=== PATIENT | female | born 1960 | race American Indian/Alaskan Native ===

== ENCOUNTER 2016-08-22 10:22 | Outpatient (CLI) | payer OTHER ==
--- NOTE | 2016-08-22 13:35 | Mammography Report ---
BILATERAL DIGITAL SCREENING MAMMOGRAM with CAD: 08/22/16 10:22:00 CLINICAL: Routine screening. COMPARISON:None available. FINDINGS: The breasts are almost entirely fatty. No mass, architectural distortion or suspicious calcifications. IMPRESSION: No mammographic evidence of malignancy. BI-RADS CATEGORY: 1 - - Negative RECOMMENDATION: Routine mammographic screening in one year. COMMENT: Patient follow-up letters are generated by our [employer] application.
== END 2016-08-22 10:23 | disposition home or self-care (01) ==
LOC: SPVWC 10:22
PROVIDERS: ATTEND Family Medicine
DX: Z12.31 Encounter for screening mammogram for malignant neoplasm of breast (principal)
CPT/HCPCS: 77067; G0202

== ENCOUNTER 2017-03-15 09:58 | Outpatient (CLI) | payer OTHER ==
--- NOTE | 2017-03-15 14:01 | Ultrasound Report ---
ULTRASOUND PELVIC COMPLETE ULTRASOUND TRANSVAGINAL HISTORY: Followup of cervix, post coital and contact of bleeding. COMPARISON: None. TECHNIQUE: Transabdominal and transvaginal ultrasound with color doppler interrogation. FINDINGS: Uterus: The uterus is anteverted. The uterus measures 9.9 x 4.6 x 5.4 cm. There is a heterogeneous area near the uterine fundus measuring 2.6 x 2.2 cm. The etiology of this is unclear. This does not have the typical appearance of a fibroid. This is only appreciated on the transvaginal images. Consider further evaluation with pelvic MRI with contrast if needed. Endometrium: 1.3 cm. Right ovary: 1.7 x 1.2 x 2.4 cm. No abnormality. Left ovary: 2.3 x 1.6 x 2.4 cm. No abnormality. No pelvic fluid or mass is identified. Normal color doppler interrogation. No cervical polyp is identified on ultrasound. A 1.1 cm nabothian cyst is identified in the lateral cervix. IMPRESSION: Heterogeneous area in the uterine fundus of uncertain etiology. This does not have the typical appearance of a fibroid. This may be associated with the distal portions of the endometrium. Consider further evaluation with pelvic MRI with contrast. Nabothian cyst in the cervix. No cervical polyp identified.
== END 2017-03-15 09:59 | disposition home or self-care (01) ==
LOC: US 09:58
PROVIDERS: ATTEND Family Medicine
DX: N88.8 Other specified noninflammatory disorders of cervix uteri (principal); N93.0 Postcoital and contact bleeding
CPT/HCPCS: 76830; 76856

== ENCOUNTER 2017-11-28 11:15 | Outpatient (CLI) | payer OTHER ==
--- NOTE | 2017-11-29 11:43 | Mammography Report ---
BILATERAL DIGITAL SCREENING MAMMOGRAM with CAD: 11/28/17 11:15:00 CLINICAL: Routine screening. COMPARISON:08/22/16 FINDINGS: The breasts are almost entirely fatty. No mass, architectural distortion or suspicious calcifications. IMPRESSION: No mammographic evidence of malignancy. BI-RADS CATEGORY: 1 - - Negative RECOMMENDATION: Routine mammographic screening in one year. COMMENT: Patient follow-up letters are generated by our [employer] application.
== END 2017-11-28 11:16 | disposition home or self-care (01) ==
LOC: SPVWC 11:15
PROVIDERS: ATTEND Family Medicine
DX: Z12.31 Encounter for screening mammogram for malignant neoplasm of breast (principal)
CPT/HCPCS: 77067

== ENCOUNTER 2018-10-06 06:42 | Day surgery (SDC) | payer OTHER ==
--- NOTE | 2018-10-06 07:42 | Anesthesia Day of Surgery ---
Anesthesia Day of Surgery - Day of Surgery Patient Examined: Yes Patient H&P Reviewed: Yes Patient is NPO: Yes
--- NOTE | 2018-10-06 07:47 | Anesthesia Consultation ---
Anesthesia Consult and Med Hx Date of service: 10/06/18 - Airway Anesthetic Teeth Evaluation: Good, Partials ROM Head & Neck: Adequate Mental/Hyoid Distance: Adequate Mallampati Class: Class II Intubation Access Assessment: Good - Pre-Operative Health Status ASA Pre-Surgery Classification: ASA3 Proposed Anesthetic Plan: General - Pulmonary Hx Smoking: No (Can climb two flights of stairs) Hx Sleep Apnea: No (ELVIA PRE SCREEN HIGH RISK) - Cardiovascular System Hx Hypertension: Yes (2005) - Endocrine Hx Non-Insulin Dependent Diabetes: Yes (No RX) - Other Systems Hx Cancer: No
[2018-10-06] MEDS ORDERED: DECADRON ONE (08:56)
[2018-10-06] MEDS ORDERED: ZOFRAN ONE (08:56)
[2018-10-06] MEDS ORDERED: XYLOCAINE MPF 2% ONE (08:56)
[2018-10-06] MEDS ORDERED: SUBLIMAZE ONE (08:57)
[2018-10-06] MEDS ORDERED: DIPRIVAN 10 MG/ML IV ONE (08:57)
[2018-10-06] MEDS ORDERED: LACTATED RINGERS 1,000 ML IV SCH (09:00)
[2018-10-06] MEDS ORDERED: NACL 0.9% IR ONE ×2 (09:44)
[2018-10-06 11:05] VITALS: BP 137/37
--- NOTE | 2018-10-06 13:22 | Operative Report ---
Operative Report Operative Report: Preoperative diagnosis: 1. Abnormal uterine bleeding. 2. Thickened endometrium. 3. Leiomyomae. 4. Endometrial polyps. Postoperative diagnosis: same as preoperative diagnosis. Procedure: 1. Hysteroscopy. 2. D&C 3. Endometrial polypectomy. Surgeon: Dr. Lehman Linter Tender: none Anesthesia: IV sedation with MAC. EBL: minimal IVF: RL 1 liter Complications: none Procedure details: The risks, benefits, and alternatives of the procedure were discussed in detail with the patient which included but not limited to infection, hemorrhage requiring a, and uterine perforation. The patient expressed understanding, her questions answered, and she gave informed consent. The patient was taken to the operating room with an IVF infusing Ringer's lactate. In the operating room, she was placed in the dorsal supine position and given IV sedation with MAC. Then, she was placed on the stirrups in a dorsal lithotomy position. The perineum vagina and cervix were washed and she was prepared and draped in the usual sterile fashion. Examination under anesthesia revealed normal external genitalia and vagina. The cervix was closed, long, posterior with mild bleeding at the os. The uterus was enlarged to 14-16 week size with irregular countour, anteverted, mobile, the adnexae were nonpalpable. A weighted speculum was placed placed on the posterior vaginal wall. The anterior lip of the cervix was grasped with a single-tooth tenaculum. Endocervical curettage was done. The cervical os was dilated and the hysteroscope was introduced into the uterine cavity. It revealed thickened endometrial lining with small polyps. The ostia were visualized. The hysteroscope was removed from the uterine cavity. A gentle curettage was performed and multiple small polyps were removed until a gritty texture was noticed. The specimen which consisted of ECC, EMC and endometrial polyps was sent to pathology. The instruments were removed from the cervix and vagina. The count of laps, needles, sponges, and instrument were correct 2. The patient tolerated the procedure well. She was awakened from the anesthesia and taken to the recovery room in a stable condition.
== END 2018-10-06 06:43 | disposition home or self-care (01) ==
LOC: OR 06:42
PROVIDERS: ATTEND Obstetrics & Gynecology
DX: N84.0 Polyp of corpus uteri (principal); N72 Inflammatory disease of cervix uteri; N93.8 Other specified abnormal uterine and vaginal bleeding; I10 Essential (primary) hypertension; E11.9 Type 2 diabetes mellitus without complications; Z98.890 Other specified postprocedural states; Z79.899 Other long term (current) drug therapy
CPT/HCPCS: 36415; 58558; 82962; 84132; 88305; 88341; 88342; A4217; J1100; J2405; J2704; J3010; J7120

== ENCOUNTER 2018-12-10 10:25 | Outpatient (CLI) | payer OTHER ==
--- NOTE | 2018-12-10 13:07 | Mammography Report ---
BILATERAL DIGITAL SCREENING MAMMOGRAM WITH CAD INDICATION: Routine screening mammography. TECHNIQUE: Digital bilateral 2D mammography was obtained in the craniocaudal and mediolateral obliq ue projections. This examination was interpreted with the benefit of Computer-Aided Detection analysi s. COMPARISON: 11/28/2017 FINDINGS: Breast Density: The breasts are almost entirely fatty. No mass, architectural distortion or suspicious calcifications. IMPRESSION:No mammographic evidence of malignancy. BI-RADS Category 1: Negative. No mammographic evidence of malignancy. Recommend routine screening m ammography in one year. A "normal" or negative report should not discourage follow up or biopsy of a clinically significant f inding. A written summary of these findings will be mailed to the patient. The patient will be entered into a mammography reporting system which will generate a reminder letter for the patient's next appointmen t at the appropriate interval. The [employer] recommends yearly mammograms starting at age 40 and continuing as [place] as a woman is in good health. Breast MRI is recommended for women with an approximate 20-25% or greater lifetime risk of breast cancer, including women with a strong family history of breast or ova ladarius cancer or who have been treated for Hodgkin's disease. Signer Name: Jose Juan Jcaobs MD Signed: 12/10/2018 1:03 PM Workstation Name: [id number]
== END 2018-12-10 10:26 | disposition home or self-care (01) ==
LOC: SPVWC 10:25
PROVIDERS: ATTEND Family Medicine
DX: Z12.31 Encounter for screening mammogram for malignant neoplasm of breast (principal); I10 Essential (primary) hypertension; E11.9 Type 2 diabetes mellitus without complications
CPT/HCPCS: 77067